=== PATIENT | male | born 1995 | race Caucasian/White ===

== ENCOUNTER → 2018-03-17 | Outpatient (CLI) | payer BC | LOC: BMCIMAGING 10:56 | PROVIDERS: ATTEND Family Medicine | DX: S62.617A Displaced fracture of proximal phalanx of left little finger, initial encounter for closed fracture (principal) ==

== ENCOUNTER → 2018-04-25 | Outpatient (CLI) | payer BC | LOC: BMCIMAGING 16:25 | PROVIDERS: ATTEND Orthopaedic Surgery Hand Surgery | DX: S62.617D Displaced fracture of proximal phalanx of left little finger, subsequent encounter for fracture with routine healing (principal) ==

== ENCOUNTER → 2018-05-31 | Outpatient (CLI) | payer BC | LOC: BMCIMAGING 11:11 | PROVIDERS: ATTEND Orthopaedic Surgery Hand Surgery | DX: S62.617D Displaced fracture of proximal phalanx of left little finger, subsequent encounter for fracture with routine healing (principal) ==